=== PATIENT | female | born 1995 | race Caucasian/White ===

== ENCOUNTER 2022-05-16 19:49 | Inpatient (IN) | payer MEDICAID, OTHER ==
[~2022-05-16] VITALS: Ht 167.6 cm; Wt 52.4 kg
[2022-05-16] MEDS ORDERED: HALOPERIDOL LACTATE 5 MG/ML VIAL IM ONE (20:30)
[2022-05-16] MEDS ORDERED: DIAZEPAM 5 MG/ML 2 ML SYRINGE IM ONE (20:30)
[2022-05-16] MEDS ORDERED: DiphenhydrAMINE HCL 50 MG/ML VIAL IM ONE (20:30)
[2022-05-16 22:30] LABS: BASOPHILS % (AUTO) 0.5 % (0.0-2.0); EOSINOPHILS % (AUTO) 1.7 % (1.0-6.0); HEMOGLOBIN 11.7 g/dL (12.0-16.0); LYMPHOCYTES # (AUTO) 2.1 K/uL (1.0-4.8); LYMPHOCYTES % (AUTO) 29.3 % (22.0-44.0); MEAN CORPUSCULAR HEMOGLOBIN 28.2 pg (26.0-34.0); MEAN CORPUSCULAR HGB CONC 33.4 G/dL (31.0-37.0); MEAN CORPUSCULAR VOLUME 85 fL (80-100); MONOCYTES # (AUTO) 0.5 K/uL (0.1-1.0); MONOCYTES % (AUTO) 7.1 % (2.0-9.0); NEUTROPHILS # (AUTO) 4.5 K/uL (1.8-7.7); NEUTROPHILS % (AUTO) 61.4 % (40.0-70.0); PLATELET COUNT (AUTO) 235 K/uL (150-450); RED BLOOD CELL COUNT(AUTO) 4.15 MIL/uL (4.00-5.20); RED CELL DISTRIBUTION WIDTH 15.5 % (11.5-14.5)
[2022-05-16 22:51] LABS: ANION GAP 14 mmol/L (8-16); CALCIUM, TOTAL 8.9 mg/dL (8.8-10.5); CARBON DIOXIDE 21 mmol/L (22-29); CHLORIDE 105 mmol/L (98-107); CREATININE 0.65 mg/dL (0.60-1.30); GLUCOSE,RANDOM 72 mg/dL (70-110); POTASSIUM 3.6 mmol/L (3.5-5.1); SODIUM SERUM 140 mmol/L (136-145); UREA NITROGEN, BLOOD 7 mg/dL (7-18)
[2022-05-16 22:52] LABS: GLOMERULAR FILTR. RATE CALC > 60 mL/min (>60)
[2022-05-16 22:54] LABS: ALANINE AMINOTRANSFERASE 15 U/L (12-78); ALKALINE PHOSPHATASE 57 U/L (46-116); ASPARTATE AMINOTRANSFERASE 19 U/L (15-37); BILIRUBIN,TOTAL 0.5 mg/dL (0.1-1.0); TOTAL PROTEIN, SERUM 7.1 g/dL (6.4-8.2)
[2022-05-16 22:54] LABS: COVID AG,FIA SOURCE NASOPHARYNGEAL
[2022-05-16 22:57] LABS: ACETAMINOPHEN < 2 mcg/mL (10-30)
[2022-05-16 23:01] LABS: SALICYLATE 1.2 mg/dL (2.8-20.0)
[2022-05-16] MEDS ORDERED: HALOPERIDOL 5 MG TABLET PO PRN (23:45)
[2022-05-16] MEDS ORDERED: ZOLPIDEM TARTRATE 10 MG TABLET PO PRN (23:45)
[2022-05-17 05:33] VITALS: BP 110/68
[2022-05-17] MEDS ORDERED: PNEUMOCOCCAL VACCINE POLYVALENT 0.5 ML VIAL [PPSV23] IM. ONE (05:45)
[2022-05-17] MEDS ORDERED: CloNIDine HCL 0.1 MG TABLET PO PRN (06:00)
[2022-05-17] MEDS ORDERED: ACETAMINOPHEN 325 MG TABLET PO PRN (06:00)
[2022-05-17] MEDS ORDERED: MAG HYDROX/AL HYDROX/SIMETH ES 30 ML SUSPENSION UDCUP PO PRN (06:00)
[2022-05-17] MEDS ORDERED: DOCUSATE SODIUM 100 MG CAPSULE PO PRN (06:00)
[2022-05-17] MEDS ORDERED: ONDANSETRON HCL 4 MG TABLET PO PRN (06:00)
[2022-05-17] MEDS ORDERED: MAGNESIUM HYDROXIDE SUSPENSION 30 ML UDCUP PO PRN (06:00)
[2022-05-17] MEDS ORDERED: ALBUTEROL SULFATE HFA 90 MCG/PUFF 8 GM INHALER IH PRN (06:00)
[2022-05-17] MEDS ORDERED: NICOTINE 14 MG/24 HOUR PATCH TD PRN (06:00)
[2022-05-17] MEDS ORDERED: IBUPROFEN 400 MG TABLET PO PRN (06:00)
[2022-05-17] MEDS ORDERED: PETROLATUM,WHITE 28 GM JELLY TP PRN (06:00)
[2022-05-17] MEDS ORDERED: GuaiFENesin/D-METHORPHAN [SUGAR-FREE] 200-20MG/10 ML SYRUP UDCUP PO PRN (06:00)
[2022-05-17] MEDS ORDERED: LOPERAMIDE HCL 2 MG CAPSULE PO PRN (06:00)
[2022-05-17 08:00] VITALS: BP 110/58
[2022-05-17] MEDS: SERTRALINE HCL 50 MG TABLET PO SCH (13:33)
[2022-05-17] MEDS: LORazepam 2 MG TABLET PO PRN (13:33)
[2022-05-17] MEDS ORDERED: NICOTINE 7 MG/24 HOUR PATCH TD ONE (14:00)
[2022-05-17 16:06] VITALS: BP 120/75
[2022-05-18 08:00] VITALS: BP 108/74
[2022-05-18] MEDS: SERTRALINE HCL 50 MG TABLET PO SCH (08:31)
[2022-05-18] MEDS: LORazepam 2 MG TABLET PO PRN (08:32)
[2022-05-18] MEDS ORDERED: NICOTINE 21 MG/24 HOUR PATCH TD SCH (09:00)
[2022-05-18] MEDS ORDERED: SERT-158 PO (13:59)
[2022-05-18] MEDS ORDERED: BACI28OI29 TP (13:59)
[2022-05-18] MEDS ORDERED: SERT20OR PO (14:22)
[2022-05-18] MEDS ORDERED: BACITRACIN 28 GM OINTMENT TP SCH (17:00)
== END 2022-05-18 14:45 | disposition home or self-care (01) | DRG 751 ==
LOC: EMS 19:52 → UNDOADMIN 05-17 00:45 → B2S 05-17 00:45 → 3EI 05-17 02:54
PROVIDERS: ADMIT Psychiatry & Neurology Psychiatry; ATTEND Psychiatry & Neurology Psychiatry
DX: F33.2 Major depressive disorder, recurrent severe without psychotic features (principal); F41.9 Anxiety disorder, unspecified; F43.10 Post-traumatic stress disorder, unspecified; F90.9 Attention-deficit hyperactivity disorder, unspecified type; F60.9 Personality disorder, unspecified; Z80.3 Family history of malignant neoplasm of breast; Z82.49 Family history of ischemic heart disease and other diseases of the circulatory system; Z91.410 Personal history of adult physical and sexual abuse; Z91.018 Allergy to other foods; Z91.013 Allergy to seafood; Z88.8 Allergy status to other drugs, medicaments and biological substances
CPT/HCPCS: 80053; 84703; 85025; 87081; 99291; G0480; G0481; J1200; J1630; J3535